=== PATIENT | male | born 1995 | race American Indian/Alaskan Native ===

== ENCOUNTER 2020-11-16 14:00 | Emergency (ER) | payer OTHER ==
[~2020-11-16] VITALS: Ht 177.8 cm; Wt 97.8 kg
[~2020-11-16 14:00] MED LIST: MOTRIN800 MG PO; NORCO 5-325 TA1 EACH PO; ULTRAM50 MG PO
--- OUTSIDE RECORDS SUMMARY | 2020-11-16 14:04 | XMS ---
PreManage Notification: TOLU LAURA [employer] Worker Events No recent Security Events currently on file CRITERIA MET - Group Notification CARE PROVIDERS There are no care providers on record at this time. Manda has no Care Guidelines for this patient. Mu VISIT COUNT (12 MO.) 1 [facility]varez TOTAL 1 NOTE: Visits indicate total known visits. ED/UCC VISIT TRACKING (12 MO.) 11/16/2020 14:01 [facility] [place] TYPE: Emergency COMPLAINT: - ABD PAIN INPATIENT VISIT TRACKING (12 MO.) No inpatient visits to display in this time frame [email or web address]
[2020-11-16] MEDS ORDERED: KEFLEX500 MG PO (15:00)
== END 2020-11-16 15:08 | disposition home or self-care (01) ==
LOC: ED 14:00
DX: L02.216 Cutaneous abscess of umbilicus (principal); Z87.891 Personal history of nicotine dependence
CPT/HCPCS: 81001; 99284